=== PATIENT | male | born 1970 | race Caucasian/White ===

== ENCOUNTER 2021-03-08 14:23 | Emergency (ER) | payer OTHER ==
[2021-03-08 17:12] LABS: BASOPHIL 0.2 % (0-2); EOSINOPHIL 0.1 % (0-5); HCT 45.3 % (42.0-52.0); HGB 15.2 g/dl (13.2-18.0); MCH 28.8 pg (25.0-31.0); MCHC 33.6 g/dL (32.0-36.0); NEUTROPHIL 80.3 % (41-80); NRBC 0; PLT 237 K/uL (150-400); RBC 5.27 M/uL (4.70-6.00); RDW 13.4 % (11.5-14.0); WBC 8.3 K/uL (4.0-10.5)
[2021-03-08 17:37] LABS: BUN/CREAT RATIO (CALC) 24.7 RATIO; CREATININE 0.81 mg/dL (0.67-1.17); POTASSIUM 4.3 mmol/L (3.5-5.1)
[2021-03-08] MEDS ORDERED: VENTOLIN HFA IN18 GM INH (17:54)
== END 2021-03-08 18:05 | disposition home or self-care (01) ==
LOC: FER 14:23
PROVIDERS: Nurse Practitioner Family
DX: J12.9 Viral pneumonia, unspecified (principal); Z86.16 Personal history of COVID-19
CPT/HCPCS: 36415; 71045; 80048; 85025; 85379; J7120